=== PATIENT | male | born 1970 | race Caucasian/White ===

== ENCOUNTER 2023-06-14 09:07 | Emergency (ER) | payer OTHER, SELFPAY ==
[2023-06-14 09:19] VITALS: BP 154/91; PULSE 74; RESP 16; TEMP 36.9; O2SAT 99
--- NOTE | 2023-06-14 09:50 | ED.SKABFB ---
HPI - Skin/Abscess/Foreign Bdy General Chief complaint: Skin/Abscess/Foreign Body Stated complaint: Shingles Time Seen by Provider: 06/14/23 09:30 Source: patient, RN notes reviewed and old records reviewed Mode of arrival: ambulatory Limitations: no limitations History of Present Illness HPI narrative: 53-year-old male who presents to [facility] with complaints small area red rash on his abdomen next to his naval area for the past 4-5 days. States he thought initially it was a folliculitis he applied hydrocortisone cream to the area. States that he noticed yesterday that he was having some tingling type of discomfort to the area. Patient reports rash is circular, no scaling tissue, small pustules noted, no present drainage, continues with tingly type of discomfort states that rash is not spreading. MD complaint: rash Onset (ago): day(s) (4-5 days) Severity: mild Severity scale (1-10): 1 Treatments prior to arrival: other (hydrocortisone) Related Data Allergies Allergy/AdvReac Type Severity Reaction Status Date / Time Penicillins Allergy Hives Verified 06/14/23 09:16 Review of Systems Review of Systems: CONSTITUTIONAL: Denies fever, chills, or sweats. CARDIOVASCULAR: Denies chest pain, palpitations, or edema. RESPIRATORY: Denies cough or dyspnea. SKIN: Reports red raised rash with small pustules to left side of naval on abdomen, no drainage, tingly pain MUSCULOSKELETAL: Denies joint pain or myalgia. NEUROLOGIC: Denies headache, numbness, or weakness. All systems reviewed & are unremarkable except as noted in HPI and below PMFSH Past Medical History Medical History (Updated 06/14/23 @ 10:40 by Mary Edward NP) No pertinent past medical history Social History Social History (Updated 06/14/23 @ 10:41 by Mary Edward NP) Smoking status: Never smoker Alcohol intake: current Alcohol use details: social Substance use type: does not use Living arrangements: with family Gender identity (if verbalized by the patient): Male Comments At time of signature, agree with nursing past medical, surgical, social and family history. There is no relevant family history pertinent to the presenting complaint Exam Narrative: GENERAL: Well-appearing, well-nourished, and in no acute distress. HEAD: Normocephalic, atraumatic. EYES: PERRLA, conjunctivae clear, and EOMI. ENT: Mucous membranes moist. Oropharynx without edema, erythema or lesions. NECK: Supple. No lymphadenopathy CHEST: Clear to auscultation. No respiratory distress. SAO2 99% on room air HEART: Regular rate and rhythm. SKIN: Warm, dry.?Small patch of red raised rash to left side of naval for 4-5 days, small pustules with no drainage tingling type of discomfort. NEURO:? Alert and oriented x3. PSYCH: Normal mood and affect Course Course Emergency Course: Patient is aware of diagnosis, understands and agrees to treatment plan.? Anticipatory guidance given.? Patient agrees to follow-up as directed and is aware of reasons to seek care at the emergency department. Portions of this record may have been created with voice recognition software Level of Care: Express Care Visit Vital Signs Vital signs: Vital Signs Temperature 36.9 C 06/14/23 09:19 Pulse Rate 74 06/14/23 09:19 Respiratory Rate 16 06/14/23 09:19 Blood Pressure 154/91 H 06/14/23 09:19 Pulse Oximetry 99 06/14/23 09:19 Temperature 36.9 C 06/14/23 09:19 Pulse Rate 74 06/14/23 09:19 Respiratory Rate 16 06/14/23 09:19 Blood Pressure 154/91 H 06/14/23 09:19 Pulse Oximetry 99 06/14/23 09:19 Reviewed MDM - Skin/Abscess/Foreign Bdy MDM Narrative Medical decision making narrative: Does not appear at this time to be erythema multiforme, bullous, SJS, TEN; no evidence at this time to suggest RMSF, endocarditis or Lyme disease; patient looks well, nontoxic and is tolerating oral intake; no neurologic signs or symptoms; no h
== END 2023-06-14 09:58 | disposition home or self-care (01) ==
PROVIDERS: Emergency Provider Registered Nurse; PCP Family Medicine
DX: B02.9 Zoster without complications (principal)
CPT/HCPCS: 99203; G0463